=== PATIENT | male | born 1970 | race Two or more races ===

== ENCOUNTER 2024-12-07 09:56 | Emergency (ER) | payer OTHER ==
[~2024-12-07] VITALS: Ht 180.3 cm; Wt 78.2 kg
--- NOTE | 2024-12-07 10:06 | ELECTROCARDIOGRAPH REPORT ---
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 Chuck Ludwig Measurements Intervals [place] Rate: 154 P: 264 CT: 99 QRS: 96 QRSD: 77 T: -27 QT: 304 QTc: 487 Interpretive Statements Ectopic atrial tachycardia, unifocal Borderline right axis deviation Repol abnrm suggests ischemia, diffuse leads Electronically Signed On 12-12-2024 18:40:[address] Chuck Ludwig Please click the below link to view image of tracing.
--- NOTE | 2024-12-07 10:07 | Physician Documentation ---
History of Present Illness ~ Chief Complaint: Rapid Heartbeat Stated Complaint: ELEVATED H/R HPI This a 54-year-old male here presents due to feeling rapid heart rate along with his smart watch indicating sustained rapid heart rate and possible AFib since last night. Patient reports that he is otherwise healthy and runs 20 miles week, patient reports one short episode of AFib last year that self- resolved prior to intervention. Reports no chest pain or shortness of breath. Medication Reconciliation Allergies: Uncoded Allergies: SULFANOMIDE (Allergy, Unknown, 12/07/24) Review of Systems ROS As stated above in the HPI, otherwise all systems are reviewed and negative. Physical Exam Vital Signs: Temperature: 98.1, Source: Temporal, Heart Rate: 149, Respiratory Rate: 15, BP: 134/106, Pulse Oximetry: 99, Weight: 78.250 Physical Exam VITALS: Reviewed and as above. GENERAL: Alert, nontoxic appearing, no apparent distress. RESPIRATORY: No increased work of breathing, no respiratory distress, speaking in full clear sentences Progress Results/Orders Results/Orders Vital Signs 12/07/24 12/07/24 12/07/24 12/07/24 09:58 10:16 10:28 10:50 Temp 98.1 Pulse 149 145 85 Resp 15 18 14 15 B/P (MAP) 134/106 131/109 (116) 129/90 (103) Pulse Ox 99 98 99 12/07/24 12:34 Temp 98.1 Pulse 74 Resp 12 B/P (MAP) 132/89 Pulse Ox 99 Laboratory Tests Test 12/07/24 10:10 12/07/24 11:46 White Blood Count 11.5 H Red Blood Count 5.77 Hemoglobin 16.6 Hematocrit 48.1 Mean Corpuscular Volume 83.3 Mean Corpuscular Hemoglobin 28.7 Mean Corpuscular Hemoglobin Concent 34.4 Red Cell Distribution Width 14.1 Platelet Count 403 Mean Platelet Volume 8.0 Neutrophils (%) (Auto) 56.4 Lymphocytes (%) (Auto) 32.0 Monocytes (%) (Auto) 8.0 Eosinophils (%) (Auto) 2.9 Basophils (%) (Auto) 0.7 Neutrophils # (Auto) 6.5 Lymphocytes # (Auto) 3.7 Monocytes # (Auto) 0.9 Eosinophils # (Auto) 0.3 Basophils # (Auto) 0.1 CBC Comment Miscellaneous Test see note Sodium Level 140 Potassium Level 4.2 Chloride Level 105 Carbon Dioxide Level 30.1 Anion Gap 5 L Blood Urea Nitrogen 17 Creatinine 1.13 H Estimated GFR/1.73 m2 68 BUN/Creatinine Ratio 15.0 Glucose Level 108 H Calcium Level 9.2 Magnesium Level 2.2 Troponin I High Sensitivity 57 60 Albumin 3.7 Chemistry Comments Troponin I High Sens Percent Delta 5 Troponin I Hi Sens Absolute Change 3 Medical Decision Making Findings MSE performed in triage and patient returned to ED lobby by nursing staff to await available ED room, patient appears to have eloped from ED lobby Differential Dx:Considerations: Include: angina / DE, atrial dysrhythmia, atrial fibrillation, atrial flutter, sinus tachycardia Differential Dx:Considerations: Include anxiety/panic attack, Include electrolyte disorder, Include hyperthyroidism, Include hyperventilation, Include pulmonary embolus Departure Disposition: LEFT AWOL/ELOPED Impression: Primary Impression: Abnormal heart rhythm Qualified Codes: I49.9 - Cardiac arrhythmia, unspecified Referrals: NO PRIMARY CARE PROVIDER (PCP) Additional Comment Medical Screen Exam This a 54-year-old male here presents due to feeling rapid heart rate along with his smart watch indicating sustained rapid heart rate and possible AFib since last night. Patient reports that he is otherwise healthy and runs 20 miles week, patient reports one short episode of AFib last year that self- resolved prior to intervention. Reports no chest pain or shortness of breath. VITALS: Reviewed and as above. GENERAL: Alert, nontoxic appearing, no apparent distress. RESPIRATORY: No increased work of breathing, no respiratory distress, speaking in full clear sentences EKG the triage interpreted as regular tachycardia without ST elevation or depression ACS protocol initiated by nursing staff and patient placed in available ED room Signature Scribe Signature: No scribe Attestation: The note accurately reflects work and decisions made by me.ALYSSA Alba 12/08/24 22:47 STEPHANIE BARAKAT Dec 07, 2024 10:07
[2024-12-07] MEDS: normal saline 1000ml 1,000 ML IV ONE ×2 (10:16→11:02)
--- NOTE | 2024-12-07 10:35 | Physician Documentation ---
History of Present Illness ~ Chief Complaint: Rapid Heartbeat Stated Complaint: ELEVATED H/R Time Seen by MD: 10:22 Primary Medical Doctor: [facility] [place]: BENJAMIN CRUZ Mode of Arrival: POV, Ambulatory HPI 54-year-old male presenting for heart palpitations. The patient states that about 2-3 hours ago he started feeling a racing heartbeat. He states that this is unusual for him. He states that he feels like his heart is beating very fast but he denies any chest pain, dizziness, lightheadedness or any other associated symptoms. He denies any recent inciting events. States that about a year ago he was helping push a stalled the car on the side of the road when he suddenly had similar symptoms. At that time he was diagnosed with a transient episode of atrial fibrillation which resolved on his own. Since then he has not had any issues until today. Patient lives in [place] but is here temporarily for his daughter's swim meet. Medication Reconciliation Allergies: Uncoded Allergies: SULFANOMIDE (Allergy, Unknown, 12/07/24) Review of Systems All Other Systems at this time: Reviewed and Negative Physical Exam Vital Signs: Temperature: 98.1, Source: Temporal, Heart Rate: 145, Respiratory Rate: 14, BP: 131/109, Pulse Oximetry: 98, Weight: 78.250 Physical Exam I have reviewed the triage vitals. CONST: Well developed and well nourished. In no acute distress HENT: Head Atraumatic EYES: Pupils are equal, round and reactive to light. Normal conjunctiva NECK: Normal range of motion. Supple. CARDIO: Tachycardic, regular rhythm. No murmurs, rubs, or gallops. S1, S2. PULM/CHEST: No respiratory distress. Lungs clear to auscultation. No wheeze ABD: Soft and nontender. Nondistended. Bowel sounds normal. No guarding. : Exam deferred MSK: No edema. No deformity. NEURO: Alert and oriented to person, place and time. Moving all extremities SKIN: Warm and dry. PSYCH: Normal mood and affect. Good eye contact. Progress Results/Orders Results/Orders Orders - YAMILA GORMAN MD Chest,Single View (12/07/24 10:02) Monitor (12/07/24 10:02) Saline Lock (12/07/24 10:02) Oxygen (12/07/24 10:02) Electrocardiogram (12/07/24 10:02) Completed Orders - YAMILA GORMAN MD Chest,Single View (12/07/24 10:02) Cbc/Diff (12/07/24 10:02) BMP (12/07/24 10:02) Electrocardiogram (12/07/24 10:02) Hs Troponin I W Calculations (12/07/24 10:02) Hs Troponin I W Calculations (12/07/24 12:02) Normal Saline 1000ml (Sodium Chloride 10 (12/07/24 10:15) MG (12/07/24 10:10) Normal Saline 1000ml (Sodium Chloride 10 (12/07/24 11:00) Laboratory Tests Test 12/07/24 10:10 12/07/24 11:46 White Blood Count 11.5 H Red Blood Count 5.77 Hemoglobin 16.6 Hematocrit 48.1 Mean Corpuscular Volume 83.3 Mean Corpuscular Hemoglobin 28.7 Mean Corpuscular Hemoglobin Concent 34.4 Red Cell Distribution Width 14.1 Platelet Count 403 Mean Platelet Volume 8.0 Neutrophils (%) (Auto) 56.4 Lymphocytes (%) (Auto) 32.0 Monocytes (%) (Auto) 8.0 Eosinophils (%) (Auto) 2.9 Basophils (%) (Auto) 0.7 Neutrophils # (Auto) 6.5 Lymphocytes # (Auto) 3.7 Monocytes # (Auto) 0.9 Eosinophils # (Auto) 0.3 Basophils # (Auto) 0.1 CBC Comment Miscellaneous Test see note Sodium Level 140 Potassium Level 4.2 Chloride Level 105 Carbon Dioxide Level 30.1 Anion Gap 5 L Blood Urea Nitrogen 17 Creatinine 1.13 H Estimated GFR/1.73 m2 68 BUN/Creatinine Ratio 15.0 Glucose Level 108 H Calcium Level 9.2 Magnesium Level 2.2 Troponin I High Sensitivity 57 60 Albumin 3.7 Chemistry Comments Troponin I High Sens Percent Delta 5 Troponin I Hi Sens Absolute Change 3 EKG/XRAY/CT/US/VASC/MRI EKG : Additional Comment EKG 1.: EKG done at 10:04 a.m. and interpreted by myself indicates atrial fibrillation with rapid ventricular response at a rate of 154 beats per minute Chest X-Ray : Additional Comments CHEST XRAY: 1 view(s) was obtained HISTORY: CP COMPARISON: None FINDINGS: There is elevation of the right hemidiaphragm. Lungs are clear. Cardiomediastinal solid is normal in size. Image upper abdomen osseus structures are unremarkable. IMPRESSION: 1. Right hemidiaphragm elevation 2. Clear lungs Medical Decision Making Additional Information 54-year-old gentleman presenting with paroxysmal atrial fibrillation. Patient initially presenting with atrial fibrillation with rapid ventricular response with a rate of 150s to 160s. Patient was started on IV normal saline and after being given about 1 L he spontaneously converted back to normal sinus rhythm. Lab work was performed which was unremarkable. Repeat EKG showed normal sinus rhythm with no ST elevations or other changes. On reassessment the patient is asymptomatic and feels completely back to normal. Had a long discussion with the patient regarding this. Given that this is the 2nd time that this has happened I strongly advised that he follow up with a big data admin when he returns home to [place]. Given that he spontaneously converted on his own in his otherwise well, his vitals are normal and he was observed in the ED without any recurrence of AFib or symptoms I believe it is prudent and safe for him to discharge back home. I advised him to ensure that he drinks plenty of fluids and follow up closely with the primary care physician and with the big data admin within the next 1-2 weeks. Return to the ED with any acutely worsening symptoms. Departure Disposition: 01 HOME / SELF CARE / HOMELESS Impression: Primary Impression: Paroxysmal atrial fibrillation Additional Impression: Dehydration Condition: Improved Discharge Instructions: Atrial Fibrillation Additional Instructions: Monitor your symptoms for any recurrence. Ensure that you are drinking plenty of fluids and staying hydrated. Please follow up with her primary care physician as well as with a big data admin when he got back home. Return to the ED with any recurring symptoms. Referrals: NO PRIMARY CARE PROVIDER (PCP) Signature Scribe Signature: 1 Attestation: 1 YAMILA GORMAN MD Dec 07, 2024 10:35
[2024-12-07 10:36] LABS: BASOPHILS # (AUTO) 0.1 X10'3 (0-0.2); BASOPHILS % (AUTO) 0.7 % (0-1); EOSINOPHILS # (AUTO) 0.3 X10'3 (0-0.9); EOSINOPHILS % (AUTO) 2.9 % (0-6); HEMATOCRIT 48.1 % (42.0-52.0); HEMOGLOBIN 16.6 g/dl (14.0-17.9); LYMPHOCYTES # (AUTO) 3.7 X10'3 (1.1-4.8); MEAN CORPUSCULAR HEMOGLOBIN 28.7 PG (27.0-31.0); MEAN CORPUSCULAR HGB CONC 34.4 g/dL (33.0-36.5); MEAN CORPUSCULAR VOLUME 83.3 FL (78-98); MONOCYTES # (AUTO) 0.9 X10'3 (0-0.9); NEUTROPHILS # (AUTO) 6.5 X10'3 (1.8-7.7); NEUTROPHILS % (AUTO) 56.4 % (42-75); PLATELET COUNT 403 X10'3 (140-440); RED BLOOD COUNT 5.77 X10'6 (4.70-6.10); RED CELL DISTRIBUTION WIDTH 14.1 % (11.5-14.5); WHITE BLOOD COUNT 11.5 X10'3 (4.5-11.0)
[2024-12-07 10:45] LABS: ALBUMIN 3.7 G/DL (3.4-5.0); ANION GAP 5 (8-16); BLOOD UREA NITROGEN 17 MG/DL (7-18); CALCIUM 9.2 MG/DL (8.5-10.1); CHLORIDE 105 MMOL/L (99-107); CREATININE 1.13 MG/DL (0.60-1.10); GLUCOSE 108 MG/DL (70-104); POTASSIUM 4.2 MMOL/L (3.5-5.1); SODIUM 140 MMOL/L (135-145); TOTAL CARBON DIOXIDE 30.1 MMOL/L (24-32); eCRCL 80 ML/MIN; eGFR 68 ML/MIN
--- NOTE | 2024-12-07 10:45 | RADIOLOGY REPORT ---
CHEST XRAY: 1 view(s) was obtained HISTORY: CP COMPARISON: None FINDINGS: There is elevation of the right hemidiaphragm. Lungs are clear. Cardiomediastinal solid is normal in size. Image upper abdomen osseus structures are unremarkable. IMPRESSION: 1. Right hemidiaphragm elevation 2. Clear lungs
[2024-12-07 10:55] LABS: MAGNESIUM 2.2 MG/DL (1.5-2.4)
[2024-12-07 12:34] VITALS: BP 132/89; PULSE 74; RESP 12; TEMP 98.1; O2SAT 99
--- NOTE | 2024-12-07 14:01 | ELECTROCARDIOGRAPH REPORT ---
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 Chuck Ludwig Measurements Intervals [place] Rate: 78 P: 13 AR: 192 QRS: -7 QRSD: 82 T: 30 QT: 344 QTc: 392 Interpretive Statements Atrial-paced complexes Anteroseptal infarct, old Electronically Signed On 12-12-2024 18:40:[address] Chuck Ludwig Please click the below link to view image of tracing.
== END 2024-12-07 12:46 | disposition home or self-care (01) ==
LOC: ER 09:57 → EDBD 09:57 → ER 12:46
DX: I48.0 Paroxysmal atrial fibrillation (principal); E86.0 Dehydration
CPT/HCPCS: 36415; 71045; 80048; 83735; 84484; 85025; 93005; 96360; 96361; 99285; J7030